=== PATIENT | male | born 1975 | race Caucasian/White ===

== ENCOUNTER 2016-06-05 09:24 | Emergency (ER) | payer MEDICAID ==
[~2016-06-05] VITALS: Ht 167.6 cm; Wt 89.5 kg
[~2016-06-05 09:24] MED LIST: AZIT250T94 PO; CYCL-319 PO; D-ME118S6 PO; DICL50TA11 PO; HYDR-906 PO; SODI126M NASAL; robitussin
[2016-06-05 09:27] VITALS: Ht 167.6 cm; Wt 89.5 kg
[2016-06-05] MEDS ORDERED: ONDANSETRON 4 MG INJ IV STA (09:53)
[2016-06-05] MEDS ORDERED: KETOROLAC 30 MG INJ IV STA (09:53)
--- NOTE | 2016-06-05 09:53 | ERD ---
ER Documentation Chief Complaint Date/Time DATE: 06/05/16 TIME: 09:52 Chief Complaint Complains of flank pain since last Monday HPI 40-year-old male who presents to the emergency room for right upper abdominal pain started last Monday. Pain was described as sharp that radiates to right flank. No nausea and vomiting. Denies headache, loss of consciousness, dizziness, blurry vision, changes in vision, photophobia, facial pain, ear pain, throat pain, difficulty swallowing, neck pain, shoulder pain, chest pain, cough, hemoptysis, back pain, loss of appetite, nausea, vomiting, hematochezia, diarrhea, constipation, urinary symptoms, blood in urine, bladder and bowel incontinences, extremity weakness, extremity tenderness, numbness or tingling sensation, difficulty walking, recent travel, recent exposure to illness, recent antibiotic use in the last 3 months, fever, chills. Allergy: No known allergies. PMH: Denies. Medications: Denies. Surgery: Denies. Family history: Denies family history of cardiac before the age of 50, gallstones, liver disease. 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 Denies smoking, use of alcohol, use of illegal drugs. ROS All systems reviewed and are negative except as per history of present illness. Medications Home Meds Active Scripts Diclofenac Sodium* (Diclofenac Sodium*) 50 Mg Tablet.dr, 50 MG PO TID, #15 TAB Prov:CORINNE HERNANDEZ 11/14/15 Cyclobenzaprine Hcl* (Cyclobenzaprine Hcl*) 10 Mg Tablet, 10 MG PO TID, #15 TAB Prov:CORINNE HERNANDEZ 11/14/15 Hydrocodone/Acetaminophen ([place] 5-325 Tablet) 1 Each Tablet, 1 EACH PO Q8, #7 TAB Prov:CORINNE HERNANDEZ 11/14/15 Sodium Chloride (Saline Nasal Mist) 126 Ml Mist, 1 SPRAY NASAL Q2H Y for congestion for 3 Days, BOTTLE Prov:CHAN MCNEIL 04/25/15 Dextromethorphan Hb-Promethazine Hcl (Promethazine DM Syrup) 180 Ml Syrup, 5 ML PO Q6H Y for COUGH, #4 OZ Prov:CHAN MCNEIL 04/25/15 Azithromycin* (Zithromax*) 250 Mg Tablet, 250 MG PO .JYOTSNA DIRECTED, #6 TAB TAKE 500 MG (2 TABS) THE FIRST DAY THEN 250 MG (1 TAB) DAYS 2-5 Prov:CHAN CMNEIL 04/25/15 Reported Medications [robitussin] No Conflict Check 08/03/11 Allergies Allergies: Coded Allergies: No Known Allergy (Unverified , 08/03/11) PMhx/Soc Medical and Surgical Hx: pt denies Medical Hx, pt denies Surgical Hx History of Surgery: No Anesthesia Reaction: No Hx Neurological Disorder: No Hx Respiratory Disorders: No Hx Cardiac Disorders: No Hx Psychiatric Problems: No Hx Miscellaneous Medical Probl: No Hx Alcohol Use: No Hx Substance Use: No Hx Tobacco Use: No Physical Exam Vitals Vital Signs Date Time Temp Pulse Resp B/P Pulse Ox O2 Delivery O2 Flow Rate FiO2 06/05/16 09:27 97.1 74 20 131/84 100 Physical Exam CONSTITUTIONAL: Well-appearing; well-nourished; in no apparent distress. HEAD: Normocephalic; atraumatic. EYES: Conjunctiva clear, sclera non-icteric, EOM intact. PERRL Ears: Hearing intact. EACs clear, TMs non-bulging, non-inflamed, translucent & mobile, ossicles normal appearance, No obstructions, no erythema, no discharges Nose: No obstructions. No polyps. No external lesions. Mucosa non-inflamed. No external lesions, septum and turbinates normal. No rhinorrhea. No discharges. Frontal sinus is non-tender to palpation. Maxillary sinus is non-tender to palpation. MOUTH: Moist mucous membranes, no lesion, no obstructions, no vesicles, no thrush, patent airway Throat: Uvula in midline. Right tonsil is +1 with no erythema, no exudate. Left tonsil is +1 with no erythema, no exudate. Tolerating secretions well. Good gag reflex. Patent airway. Neck: Supple, without lesions, bruits, or adenopathy. No mass. Thyroid non- enlarged and non-tender to palpation. CHEST: Symmetrical chest. Respirations even and not labored. No retractions noted. CARDIOVASCULAR: Normal S1, S2. RRR. No murmurs, gallops. RESPIRATORY: Normal chest excursion with respiration; breath sounds clear and equal bilaterally; no wheezes, rhonchi, or rales. Breathing even and unlabored. Speaking in clear, full, and complete sentences w/ ease. ABDOMEN: Normal bowel sounds normal. Soft, round, non-distended, non-guarding, no rebound, no organomegaly, no masses, no pulsating abdominal mass. Has right upper abdominal tenderness on palpation and inspiration. No right lower abdominal tenderness. No rebound. Negative on Rovsing sign. Negative on Alexus sign. No hernia. No peritoneal signs. : Has right CVA tenderness. BACK: Symmetrical shoulder. Spine is midline without deformity, tenderness. No evidence of trauma or deformity. PELVIS: Stable pelvis. No evidence of trauma or deformity. MUSCULOSKELETAL: Normal gait and station. No misalignment, asymmetry, crepitation, defects, tenderness, masses, effusions, decreased range of motion, instability, atrophy or abnormal strength or tone in the head, neck, spine, ribs , pelvis or extremities. No calf tenderness. NEUROVASCULAR: Distal pulses are present. Pedal pulse are present, equal, and normal. Capillary refills are < 2 seconds. NEUROLOGIC: Alert and oriented x4. Speaks full and clear sentences. Cranial Nerves II-XII normal. Sensation to pain, touch, and proprioception normal. Grossly unremarkable. No neurologic deficits. Romberg test is negative. PSYCHOLOGICAL: The patients mood and manner are appropriate. No hallucinations , delusions. Not SI. Not HI. Has the capacity to decide for self SKIN: Normal for age and ethnicity; warm; dry; good turgor; no apparent lesions or exudates. No rashes, hives, discoloration. Intact. Result Diagram: 06/05/16 1018 06/05/16 1018 Results 24 hrs Laboratory Tests Test 06/05/16 10:18 White Blood Count 8.410^3/ul Red Blood Count 4.7010^6/ul Hemoglobin 13.7g/dl Hematocrit 42.0% Mean Corpuscular Volume 89.4fl Mean Corpuscular Hemoglobin 29.1pg Mean Corpuscular Hemoglobin Concent 32.6g/dl Red Cell Distribution Width 13.2% Platelet Count 72119^3/UL Mean Platelet Volume 8.8fl Neutrophils % 60.9% Lymphocytes % 28.3% Monocytes % 7.9% Eosinophils % 2.4% Basophils % 0.4% Nucleated Red Blood Cells % 0.0/100WBC Neutrophils # 5.110^3/ul Lymphocytes # 2.410^3/ul Monocytes # 0.710^3/ul Eosinophils # 0.210^3/ul Basophils # 0.010^3/ul Nucleated Red Blood Cells # 0.010^3/ul Prothrombin Time 12.8Sec Prothrombin Time Ratio 1.0 INR International Normalized Ratio 0.96 Activated Partial Thromboplast Time 26.4Sec Urine Color LT. YELLOW Urine Clarity HAZY Urine pH 6.0 Urine Specific [place] 1.020 Urine Ketones NEGATIVE Urine Nitrite NEGATIVE Urine Bilirubin NEGATIVE Urine Urobilinogen 0.2 E.U./dL Urine Leukocyte Esterase NEGATIVE Urine Microscopic RBC >50/HPF Urine Microscopic WBC NONE SEEN/HPF Urine Bacteria FEW Urine Mucus FEW Urine Hemoglobin 3+ Urine Glucose NEGATIVE% Urine Total Protein NEGATIVE Sodium Level 141mmol/L Potassium Level 4.8mmol/L Chloride Level 105mmol/L Carbon Dioxide Level 27mmol/L Anion Gap 14 Blood Urea Nitrogen 12mg/dl Creatinine 0.80mg/dl Glucose Level 107mg/dl Calcium Level 9.3mg/dl Total Bilirubin 0.6mg/dl Direct Bilirubin 0.00mg/dl Indirect Bilirubin 0.6mg/dl Aspartate Amino Transf (AST/SGOT) 31IU/L Alanine Aminotransferase (ALT/SGPT) 47IU/L Alkaline Phosphatase 103IU/L Troponin I < 0.012ng/ml Total Protein 7.4g/dl Albumin 4.3g/dl Globulin 3.10g/dl Albumin/Globulin Ratio 1.38 Amylase Level 112U/L Lipase 71U/L Current Medications Medications (Trade) Dose Ordered Sig/Zo Route PRN Reason Start Time Stop Time Status Last Admin Dose Admin Ondansetron HCl (Zofran Inj) 4 mg ONCE STAT IV 06/05/16 09:53 06/05/16 09:59 DC 06/05/16 10:22 Ketorolac Tromethamine (Toradol) 30 mg ONCE STAT IV 06/05/16 09:53 06/05/16 09:59 DC 06/05/16 10:22 Procedures/MDM Examination: Please see physical examination. Disease process, medical treatment was explained to the patient and family member. They verbalized understanding and agreed with the diagnostic tests, medical treatment, and follow-up care. EKG: Normal sinus rhythm with ventricular rate of 73 bpm. No signs of acute myocardial infarction. Radiology: Abdominal ultrasound. Impression: Although the gallbladder is incompletely visualized wall thickness appears within normal limits; no sonographic evidence of cholecystitis. Possible small gallstones within the gallbladder are not well visualized. Normal caliber intrahepatic and extrahepatic biliary system. CT abdomen and pelvis. Impression: Rule out right-sided diverticulitis. No abscess or pneumoperitoneum. Fatty liver. Left renal cyst. Blood works: Reviewed. Urinalysis: Reviewed. Treatment: IV insertion. Zofran IV. Toradol IV. Re-evaluation: Denies pain. No nausea and vomiting. Unremarkable abdominal reexamination. Consultation: None. Case was discussed with supervising emergency room physician, Dr. Abdifatah Manzanares who also examined the patient. He agreed with my medical decision making. Differential diagnosis: Acute myocardial infarction versus cholelithiasis versus cholecystitis pancreatitis versus nephrolithiasis versus pyelonephritis Medical decision m[age]-year-old male who presents to the emergency room for right upper abdominal pain started last Monday. Pain was described as sharp that radiates to right flank. No nausea and vomiting. Patient's complaint, patient's history about his complaint, my physical findings are consistent with my final diagnosis of right-sided diverticulitis, cholelithiasis. Medications prescribed are the following: Cipro. Flagyl. Tramadol. Zofran. Patient and family member are made aware of the side effects and adverse reactions of the medications prescribed. Instructed on when to seek emergent and medical attention in case allergic/anaphylactic reactions or severe side effects and or adverse reactions to medications. Patient and family member verbalized understanding. Patient instructed Instructed to follow-up with his PCP in 24-48 hours. PCP to refer patient to surgeon for an elective surgery. Instructed to Call 911 for chest pain, shortness of breath. Advised to come back here in ED as soon as possible for severity of symptoms which includes but not limited to: any new symptoms; shortness of breath/difficulty of breathing; cardiovascular changes; severe gastrointestinal symptoms; signs and symptoms of bleeding and or infection; signs of compartment syndrome/neurovascular changes; neurological changes/deficits. Patient and family member verbalized understanding. Upon discharge, patient is alert and oriented x 4, speaks full and clear sentences, denies pain, has no neurological deficits, has no neurovascular deficits, difficulty of breathing. Breathing even and unlabored. Lung sounds are clear to auscultation. Not in distress. Appears comfortable. Ambulatory with steady gait. Appears satisfied with care provided here in ED. Departure Diagnosis: Primary Impression: Diverticulitis Additional Impression: Cholelithiasis Condition: Stable Additional Instructions: Patient instructed Instructed to follow-up with his PCP in 24-48 hours. PCP to refer patient to surgeon for an elective surgery. Instructed to Call 911 for chest pain, shortness of breath. Advised to come back here in ED as soon as possible for severity of symptoms which includes but not limited to: any new symptoms; shortness of breath/difficulty of breathing; cardiovascular changes; severe gastrointestinal symptoms; signs and symptoms of bleeding and or infection; signs of compartment syndrome/neurovascular changes; neurological changes/deficits. Patient and family member verbalized understanding. NAPOLEON JUARES Jun 05, 2016 09:53
[2016-06-05 10:32] LABS: ADD SCAN DIFF NO
[2016-06-05 10:36] LABS: ADD UMIC YES; URINE BILIRUBIN (Dip) NEGATIVE (NEGATIVE); URINE BLOOD (Dip) 3+ (NEGATIVE); URINE COLOR LT. YELLOW (YELLOW); URINE GLUCOSE (Dip) NEGATIVE (NEGATIVE); URINE KETONES (Dip) NEGATIVE (NEGATIVE); URINE LEUKOCYTE ESTERASE (Dip) NEGATIVE (NEGATIVE); URINE NITRITE (Dip) NEGATIVE (NEGATIVE); URINE TOTAL PROTEIN (Dip) NEGATIVE (NEGATIVE); URINE UROBILINOGEN (Dip) 0.2 E.U./dL (0.1-1.0)
[2016-06-05 10:38] LABS: BASOPHILS % 0.4 % (0.0-2.0); EOSINOPHILS # 0.2 10^3/ul (0.0-0.5); EOSINOPHILS % 2.4 % (0.0-7.0); HEMOGLOBIN 13.7 g/dl (14.0-18.0); LYMPHOCYTES # 2.4 10^3/ul (0.8-2.9); LYMPHOCYTES % 28.3 % (15.0-51.0); MEAN CORPUSCULAR HEMOGLOBIN 29.1 pg (29.0-33.0); MEAN CORPUSCULAR HGB CONC 32.6 g/dl (32.0-37.0); MEAN CORPUSCULAR VOLUME 89.4 fl (82.0-101.0); MEAN PLATELET VOLUME 8.8 fl (7.4-10.4); MONOCYTE # 0.7 10^3/ul (0.3-0.9); MONOCYTES % 7.9 % (0.0-11.0); NEUTROPHIL # 5.1 10^3/ul (1.6-7.5); NEUTROPHILS % 60.9 % (39.0-77.0); PLATELET COUNT 343 10^3/UL (140-415); RED CELL DISTRIBUTION WIDTH 13.2 % (11.5-14.5); WHITE BLOOD COUNT 8.4 10^3/ul (4.8-10.8)
[2016-06-05 10:49] LABS: ALBUMIN 4.3 g/dl (3.3-4.9)
[2016-06-05 10:50] LABS: CHLORIDE 105 mmol/L (97-110); INR 0.96; PARTIAL THROMBOPLASTIN TIME 26.4 Sec (25.0-35.0); POTASSIUM 4.8 mmol/L (3.5-5.1); PROTIME 12.8 Sec (12.2-14.2); SODIUM 141 mmol/L (135-144)
[2016-06-05 10:52] LABS: ALBUMIN/GLOBULIN RATIO 1.38; AMYLASE 112 U/L (11-123); ANION GAP 14 (8-16); BACTERIA,URINE FEW; BILIRUBIN,INDIRECT 0.6 mg/dl (0-1.1); BILIRUBIN,TOTAL 0.6 mg/dl (0.2-1.3); CARBON DIOXIDE 27 mmol/L (21-31); MUCUS,URINE FEW; TOTAL PROTEIN 7.4 g/dl (6.1-8.1); URINE RBCS >50 /HPF (0)
[2016-06-05 10:53] LABS: ALANINE AMINOTRANSFERASE 47 IU/L (13-69); ALKALINE PHOSPHATASE 103 IU/L (42-121); ASPARTATE AMINO TRANSFERASE 31 IU/L (15-46); BLOOD UREA NITROGEN 12 mg/dl (7-20); CALCIUM 9.3 mg/dl (8.4-10.2); GLUCOSE 107 mg/dl (70-220)
--- NOTE | 2016-06-05 10:54 | RADRPT ---
PROCEDURE: Right upper quadrant abdominal ultrasound. CLINICAL INDICATION: Abdominal pain TECHNIQUE: Zheng scale and color doppler ultrasound images of the right upper quadrant. COMPARISON: None FINDINGS: Pancreas: Not adequately visualized due to overlying bowel gas. Liver: Morphology: Normal in size and contour. Echogenicity: Increased echogenicity of the liver parenchyma suggestive of hepatic steatosis. Focal lesions: None. Main portal vein: Patent with hepatopetal flow. Biliary System: Incomplete visualization of the gallbladder due to overlying bowel gas. No definite gallbladder wal l thickening is seen. Small possible gallstones within the gallbladder are not well visualized; these do not produce defin ite shadowing. No intrahepatic biliary dilatation. Common bile duct measures 3.5 mm in maximal dimension. Kidneys: Right 11.0 cm in length. Right renal cortical thickness is preserved. Normal echogenicity. No hydronephrosis. No renal calculi. No focal lesions. No free fluid identified. IMPRESSION: Although the gallbladder is incompletely visualized wall thickness appears within normal limits; no sonographic evidence of cholecystitis. Possible small gallstones within the gallbladder are not well visualized. Normal caliber intrahepatic and extrahepatic biliary system. RPTAT: AADD .Venancio Rao MD, MD Date Time Electronically viewed and signed by .Venancio Rao MD, on 06/05/2016 10:54 .B/
--- NOTE | 2016-06-05 10:56 | RADRPT ---
PROCEDURE: XR Chest. CLINICAL INDICATION: Right chest pain. TECHNIQUE: PA and Lateral views of the chest were obtained. COMPARISON: None. FINDINGS: The cardiomediastinal silhouette is within normal limits of size .. Atherosclerotic calcification of the aorta. The lungs are clear without pleural effusion or focal consolidation. No pneumothorax. The osseous structures and soft tissues are unremarkable. IMPRESSION: 1. No evidence for active cardiopulmonary disease. RPTAT:AAJJ Physician Laura Date Time Electronically viewed and signed by Physician Luara on 06/05/2016 10:55 TAYE/
[2016-06-05 11:09] LABS: TROPONIN-I < 0.012 ng/ml (0.00-0.12)
--- NOTE | 2016-06-05 12:54 | RADRPT ---
PROCEDURE: CT abdomen and pelvis without contrast. CLINICAL INDICATION: Right flank pain TECHNIQUE: CT scan of the abdomen and pelvis without contrast was performed and is reconstructed a t to point, mm contiguous axial intervals from the dome of the diaphragm to the inferior pubic rami. . The patient was scanned without intravenous contrast. Sagittal and coronal reformatted images we re obtained from the axial source images. The calculated radiation dose measures 800 mGy centimeters . The CTDI measures 15 mGy. COMPARISON: None. FINDINGS: The lung bases are clear of any infiltrate or nodule. No effusion is seen. Liver is of normal size and contour. There is fatty infiltration. No mass or ductal dilatation is present. No gallstones are visualized. No splenic, adrenal or pancreatic abnormalities present. Kidneys are of normal size and contour. No hydronephrosis, calculus or solid masses seen. There i s a parapelvic cyst in the upper pole of the left kidney. Ureters are of normal course and caliber with no stone. No bladder mass or stone is present. Prostate and seminal vesicles are normal. There is no aneurysm. No adenopathy is present. No bowel mass or obstruction is present. The appendix is normal. Scattered diverticula are seen. There is stranding of the pericolic fat lateral to the ascending colon. No discrete collection is seen and there is no extraluminal gas. ascites or pneumoperitoneum is visualized. The osseous structures are intact. IMPRESSION: Rule out right-sided diverticulitis. No abscess or pneumoperitoneum. Fatty liver. Left renal cyst. .Devon Johnson MD, Date Time Electronically viewed and signed by .Devon Johnson MD, on 06/05/2016 12:53 .A/
[2016-06-05] MEDS ORDERED: CIPR500T4 PO (13:25)
[2016-06-05] MEDS ORDERED: ONDA4TAB8 PO (13:26)
[2016-06-05] MEDS ORDERED: METR500T PO (13:26)
[2016-06-05] MEDS ORDERED: TRAM50TA2 PO (13:26)
[2016-06-05 13:44] VITALS: BP 115/71; PULSE 63; RESP 17; TEMP 97.1
== END 2016-06-05 13:44 | disposition home or self-care (01) ==
LOC: FTE 09:24
DX: K57.32 Diverticulitis of large intestine without perforation or abscess without bleeding (principal); K80.70 Calculus of gallbladder and bile duct without cholecystitis without obstruction
CPT/HCPCS: 71020; 74176; 76705; 80053; 81001; 82150; 83690; 84484; 85025; 85610; 85730; 93005; 96374; 96375; J1885; J2405; Z7502; 81003

== ENCOUNTER 2017-07-24 08:57 | Emergency (ER) | END 2017-07-24 10:46 | disposition home or self-care (01) ==